=== PATIENT | female | born 1945 | race Caucasian/White ===

== ENCOUNTER 2016-07-13 17:19 | Emergency (ER) | payer MEDICARE, OTHER | END 2016-07-13 18:35 | disposition home or self-care (01) | LOC: ER 17:19 | DX: S90.31XA Contusion of right foot, initial encounter (principal); M54.9 Dorsalgia, unspecified; X58.XXXA Exposure to other specified factors, initial encounter; Z79.899 Other long term (current) drug therapy; Z88.6 Allergy status to analgesic agent; Z88.8 Allergy status to other drugs, medicaments and biological substances | CPT/HCPCS: 73630; 99070; 99283; 99283-25 ==

== ENCOUNTER 2016-07-14 18:08 | Emergency (ER) | payer MEDICARE, OTHER ==
[2016-07-14 18:22] LABS: BASO % 0.3 % (0.1-1.2); EOS % 0.1 % (0.7-5.8); GRAN # 7.4 10_X3_uL (1.6-6.1); GRAN % 85.1 % (34.0-71.1); HEMATOCRIT 36.6 % (34-45); HEMOGLOBIN 11.3 g/dL (11.2-15.7); LYMPH # 0.9 10_X3_uL (1.2-3.7); LYMPH % 9.9 % (19.3-51.7); MEAN CORPUSCULAR HGB CONC 30.9 g/dL (32.0-36.0); MEAN CORPUSCULAR VOLUME 94.1 fL (79-95); MEAN PLATELET VOLUME 10.5 fl (7.5-11.5); MONO # 0.4 10_X3_uL (0.2-0.9); MONO % 4.6 % (4.7-12.5); PLATELET COUNT 240 x10_3/uL (182-369); RED BLOOD COUNT 3.89 x10_6/uL (3.9-5.2); RED CELL DISTRIBUTION WIDTH 14.3 % (11.7-14.4); WHITE BLOOD COUNT 8.7 x10_3/uL (4.0-10.0)
[2016-07-14 18:49] LABS: BILIRUBIN,TOTAL 0.23 mg/dL (0.0-1.0); CALCIUM 8.7 mg/dL (8.7-10.7); CREATININE 1.3 mg/dL (0.6-1.3); POTASSIUM 4.2 mmol/L (3.5-5.1)
[2016-07-14 18:58] LABS: URINE BILIRUBIN NEGATIVE (NEGATIVE); URINE BLOOD NEGATIVE (NEGATIVE); URINE GLUCOSE (UA) NORMAL (NORMAL); URINE KETONE NEGATIVE (NEGATIVE); URINE LEUKOCYTE ESTERASE NEGATIVE (NEGATIVE); URINE NITRATE NEGATIVE (NEGATIVE); URINE PROTEIN TRACE (NEGATIVE); UROBILINOGEN NORMAL mg/dL (<1.0)
[2016-07-14 20:01] LABS: ARTERIAL BLD GAS O2 SATURATION 95.2 % (94-98); ARTERIAL BLOOD GAS BASE EXCESS 1.1 mmol/L (-2.0-3.0); ARTERIAL BLOOD GAS HCO3 27.9 mmol/L (22-26); ARTERIAL BLOOD GAS PCO2 58.8 mmHg (32-45)
== END 2016-07-14 21:05 | disposition short-term general hospital (02) ==
LOC: ER 18:08
PROVIDERS: Internal Medicine
DX: R41.0 Disorientation, unspecified (principal); R79.89 Other specified abnormal findings of blood chemistry
CPT/HCPCS: 36415; 36600; 51702; 70450; 71010; 80053; 80307; 81003; 82550; 82553; 82803; 83605; 85025; 93005; 96365; 96376; 99070; 99284; 99285-25; G0480